=== PATIENT | male | born 1995 | race Caucasian/White ===

== ENCOUNTER 2018-11-21 22:47 | Emergency (ER) | payer OTHER ==
[2018-11-22 03:43] VITALS: BP 138/91
--- NOTE | 2018-11-22 04:00 | ER Document Report ---
ED General - General Chief Complaint: Rash Stated Complaint: SORES ON BODY Time Seen by Provider: 11/22/18 03:41 Primary Care Provider: LYNN LÓPEZ DO [Primary Care Provider] - Follow up as needed Notes: Patient is a pleasant 23-year-old male presents with complaint of a rash. He says he had a rash for over a week. He says that is visible red scaly type lesions. There are on his hands and his extremities. He said a few on his torso. He says his is now start to get them as well. They do have a dog at home. The do not live on a farm or have livestock. Patient is a marine by occupation. - Related Data Allergies/Adverse Reactions: No Known Allergies Allergy (Unverified 11/21/18 22:51) Past Medical History - Social History Smoking Status: Never Smoker Frequency of alcohol use: None Drug Abuse: None Family History: Reviewed & Not Pertinent Review of Systems - Review of Systems Notes: My Normal Review Basic REVIEW OF SYSTEMS: CONSTITUTIONAL : Denies fever, chills, or sweats. Denies recent illness. EENT: Denies eye, ear, throat, or mouth pain or symptoms. Denies nasal or sinus congestion. GASTROINTESTINAL: Denies abdominal pain. Denies nausea, vomiting, or diarrhea. MUSCULOSKELETAL: Denies neck or back pain or joint pain or swelling. SKIN: Skin lesions ALL OTHER SYSTEMS REVIEWED AND NEGATIVE. Physical Exam - Vital signs Vitals: Temp Pulse Resp BP Pulse Ox 98.1 F 85 16 135/94 H 100 11/21/18 23:51 11/21/18 23:51 11/21/18 23:51 11/21/18 23:51 11/21/18 23:51 - Notes Notes: General Appearance: Well nourished, alert, cooperative, no acute distress, no obvious discomfort. Ill-appearing. Vitals: reviewed, See vital signs table. Eyes: PERRL, EOMI, Conjuctiva clear Abdomen: Normal BS, soft, No rigidity, No abdominal tenderness Extremities: no edema. Skin: warm, dry, appropriate color, several small scaly appearing red lesions consistent with appears to be a fungal type infection. There is no erythema spreading around the lesions. No drainage. She is are slightly tender to neeraj ch. Neuro: speech clear, oriented x 3, normal affect, responds appropriately to questions. Course - Re-evaluation Re-evalutation: 11/22/18 06:34 Based on exam the lesion seems consistent with that of a fungal type infection. I do not suspect secondary bacterial infection at this time; however, I informed the patient that I would give him a prescription for an antibiotic that she should start only if he starts having spreading redness from the lesions or if the lesions start to increase in size despite clotrimazole cream. Patient to return to ER immediately if he starts having fevers, vomiting, significant worsening of the lesions, or if he feels unwell. Dictation of this chart was performed using voice recognition software; therefore, there may be some unintended grammatical errors. - Vital Signs Vital signs: Temp Pulse Resp BP Pulse Ox 98.2 F 83 16 138/91 H 100 11/22/18 03:42 11/22/18 03:42 11/22/18 03:42 11/22/18 03:42 11/22/18 03:42 Discharge - Discharge Clinical Impression: Rash Condition: Good Disposition: HOME, SELF-CARE Additional Instructions: I suspect that most likely your rash is being caused by a fungal infection. Please apply clotrimazole 1% cream to the affected areas twice a day. Sometimes you can get a secondary bacterial infection with these. Therefore, if your rash is increasing in size or spreading or not improving with clotrimazole cream I have also prescribed an antibiotic to take. You do not need to fill this antibiotic or take it unless the rash is not improving or worsening despite use of the clotrimazole cream. Please follow-up with your doctor in 3-4 days for reevaluation. The antibiotic is called doxycycline. Doxycycline will make your skin more sensitive to the sun so please make sure you keep your skin covered or wear sunscreen whenever out in the sun. Prescriptions: RX: Doxycycline Hyclate 100 mg PO BID #14 capsule Forms: Return to Work Referrals: LYNN LÓPEZ, [Primary Care Provider] - Follow up as needed
== END 2018-11-22 04:20 | disposition home or self-care (01) ==
LOC: ER 22:47
DX: R21 Rash and other nonspecific skin eruption (principal)
CPT/HCPCS: 99282